=== PATIENT | male | born 1985 | race Caucasian/White ===

== ENCOUNTER 2022-02-08 04:29 | Emergency (ER) | payer MEDICAID, SELFPAY ==
[2022-02-08 04:30] VITALS: BP 149/91; PULSE 104; RESP 18; TEMP 37.3; O2SAT 97; BMI 22.2
--- NOTE | 2022-02-08 05:07 | ED_ITS ---
HPI - Skin/Abscess/Foreign Bdy General: Chief complaint: Skin/Abscess/Foreign Body Stated complaint: possible spider bite to L hand Time Seen by Provider: 02/08/22 04:46 Source: patient and family History of Present Illness: 37-year-old male with left hand pain and swelling with discoloration, redness, and warmth following what he believes is a spider bite about 4 days ago. He noticed that the area of blackness, on the dorsum of his hand, as well as spreading redness was worse this morning. He has had some sweats. No chills, no fever. No vomiting. No excruciating pain with finger movement, although this is painful. MD complaint: insect bite/sting and abscess/boil Onset (ago): day(s) Location: L hand Severity: moderate Quality: stabbing and aching Pain Consistency: constant Relieving factors: none Exacerbating factors: movement Associated symptoms: Deny arthralgias, chills, fever(s), myalgias, nausea, short of breath or vomiting Review of Systems Const: Reports: night sweats; Denies: fever(s) or chills Card: Denies: chest pain Resp: Denies: dyspnea GI: Denies: nausea or vomiting Skin/Breast: Reports: rash, erythema, skin pain, skin tenderness and skin swelling Physical Exam Const: GENERAL APPEARANCE: cooperative; not frail appearing HENMT: COMMON NORMALS: normocephalic and atraumatic HEAD & SCALP: normoce phalic and atraumatic Eye: COMMON NORMALS: Equal, round and reactive pupils present and EOMs intact bilaterally PUPIL: Yes Equal, round and reactive pupils present Neck/C-Spine: GENERAL: Yes trachea midline Chest: CHEST: Yes Symmetrical chest wall rise Resp: COMMON NORMALS: normal respiratory effort, No use of accessory muscles and clear to auscultation bilaterally AUSCULTATION: clear to auscultation bilaterally Cardio: COMMON NORMALS: regular rhythm RATE: tachycardic RHYTHM: regular rhythm GI: COMMON NORMALS: Normal to inspection, nondistended, normoactive bowel sounds present and Soft to palpation PALPATION: Yes Soft to palpation Extremity: NARRATIVE EXTREMITY EXAM: Examination of the left upper extremity reveals a 3 to 4 cm necrotic black area over the dorsum of the hand and wrist. There is no streaking redness surrounding this with soft tissue swelling to the dorsum of the hand and wrist. It creeps up to the distal third of his dorsal forearm. Tendon function is intact. There is no excruciating pain with finger extension or passive finger flexion or wrist flexion, although this is painful. Capillary refill is normal distally. Neuro: REA COMA SCALE: document GCS findings Rea coma scale eye opening: Spontaneous Rea coma scale verbal response: Orientated [place] coma scale motor response: Obey commands Rea coma scale total score: 15 Skin: NARRATIVE SKIN EXAM: See above Procedures Abscess I/D Site: hand Side (if applicable): left Local Anesthetic: lidocaine 1% Amount of anesthesia used (mL): 8 Technique: incised with #11 blade Amount of fluid expressed (mL): 8 Irrigation: Yes Packing used?: plain Course Vital Signs: Vital signs: Vital Signs Temperature 99.2 F 02/08/22 04:30 Pulse Rate 104 H 02/08/22 04:30 Respiratory Rate 15 02/08/22 05:30 Blood Pressure 149/91 02/08/22 04:30 Pulse Oximetry 97 02/08/22 04:30 Oxygen Delivery Me thod 02/08/22 04:30 MDM - Skin/Abscess/Foreign Bdy Medicial Decision Making Bedside ultrasound reveals significant fluid under the area of necrosis and surrounding area. No definite tendon involvement. There is no excruciating pain with finger movements. Necrotic abscess incised and drained without complication. A fair amount of old blood and pus were removed. Wound is packed. Tendon function remains intact. He is getting 1.25 g of vancomycin. Blood cultures are pending. White blood cell count is 16. Lab Data : 02/08/22 05:19 02/08/22 05:19 Laboratory Results WBC 16.3 10^3/uL (4.0-10.0) H 02/08/22 05:19 RBC 4.96 10^6/uL (4.1-5.3) 02/08/22 05:19 Hgb 15.1 g/dL (11.7-16.6) 02/08/22 05:19 Hct 44.9 % (42.0-52.0) 02/08/22 05:19 MCV 90.5 fl (80-94) 02/08/22 05:19 MCH 30.4 pg (28.0-34.0) 02/08/22 05:19 MCHC 33.6 g/dL (30.0-36.0) 02/08/22 05:19 RDW 11.9 % (12.1-15.1) L 02/08/22 05:19 Plt Count 174 10^3/cmm (130-400) 02/08/22 05:19 MPV 10.2 fL (7.4-10.4) 02/08/22 05:19 Neut % (Auto) 76.4 % 02/08/22 05:19 Lymph % (Auto) 10.4 % 02/08/22 05:19 Humphreys % (Auto) 11.6 % 02/08/22 05:19 Eos % (Auto) 0.6 % 02/08/22 05:19 Baso % (Auto) 0.3 % 02/08/22 05:19 Neut # (Auto) 12.47 10^3/uL (1.8-7.7) H 02/08/22 05:19 Lymph # (Auto) 1.7 10^3/uL (0.8-4.8) 02/08/22 05:19 Humphreys # (Auto) 1.9 10^3/uL (0.2-0.9) H 02/08/22 05:19 Eos # (Auto) 0.1 10^3/uL (0.0-0.8) 02/08/22 05:19 Baso # (Auto) 0.1 10^3/uL (0.0-0.1) 02/08/22 05:19 Nucleated RBC % (auto) 0 % 02/08/22 05:19 Nucleated RBCs # 0.0 /100WBC 02/08/22 05:19 ESR 7 mm/hr (0-10) 02/08/22 05:19 Sodium 140 mmol/L (136-145) 02/08/22 05:19 Potassium 4.2 mmol/L (3.5-5.1) 02/08/22 05:19 Chloride 102 mmol/L (98-107) 02/08/22 05:19 Carbon Dioxide 27 mmol/L (22-29) 02/08/22 05:19 Anion Gap 15.2 (5-19) 02/08/22 05:19 BUN 12 mg/dL (6-20) 02/08/22 05:19 Creatinine 1.0 mg/dL (0.7-1.2) 02/08/22 05:19 GFR Calculation 84.1 mL/min (90-130) L 02/08/22 05:19 Glucose 124 mg/dL (65-115) H 02/08/22 05:19 Calculated Osmolality 291 mOsm/kg (285-295) 02/08/22 05:19 Lactate 1.1 mmol/L (0.5-2.2) 02/08/22 05:19 Calcium 9.0 mg/dL (8.5-10.5) 02/08/22 05:19 Total Bilirubin 0.6 mg/dL (0.15-1.2) 02/08/22 05:19 AST 31 U/L (0-40) 02/08/22 05:19 ALT 10 U/L (0-41) 02/08/22 05:19 Alkaline Phosphatase 94 U/L (40-130) 02/08/22 05:19 C-Reactive Protein 104.4 mg/L (0.0-4.9) H 02/08/22 05:19 Total Protein 7.1 g/dL (6.6-8.7) 02/08/22 05:19 Albumin 4.4 g/dL (3.5-5.2) 02/08/22 05:19 Globulin 2.7 g/dL (1.3-4.6) 02/08/22 05:19 Discharge Plan Discharge Patient Disposition: Home Clinical Impression: Abscess of skin or subcutaneous tissue, Spider bite wound Condition: Stable Prescriptions: New clindamycin HCl 300 mg capsule 600 mg PO Q8H 10 Days Qty: 60 0RF hydrocodone-acetaminophen 5-325 mg tablet 1 tab PO Q8H PRN (Reason: pain) Qty: 10 0RF Discharge Orders: Discharge ED (Routine); Ordered 02/08/22 Ordered By: Adam Rocha Referrals: [facility], [Staff Physician] - 4-7 days Patient Instructions: Brown Recluse Spider Bite (ED), Abscess (ED) Activity Restrictions/Additional Instructions: Case management has been ordered to make you a follow-up appointment with our wound care clinic. You should get a call at the beginning of the week for this. Antibiotics as directed. Return for worsening swelling, redness, pain, despite 2-3 doses of antibiotics, fever greater than 100 despite 2-3 doses of antibiotics, vomiting liquids or medications, excruciating pain with finger movements, any other concerning symptoms. Coding Level of Care Code ED Deputy Court Clerk for Chg Fwd Exam Comprehensive
[2022-02-08 05:30] VITALS: RESP 15
[2022-02-08 05:30] LABS: Basophils # 0.1 10^3/uL (0.0-0.1); Basophils % 0.3 %; Eosinophils # 0.1 10^3/uL (0.0-0.8); Eosinophils % 0.6 %; Hematocrit 44.9 % (42.0-52.0); Hemoglobin 15.1 g/dL (11.7-16.6); Lymphocytes # 1.7 10^3/uL (0.8-4.8); Lymphocytes % 10.4 %; Mean Corpuscular HGB Conc 33.6 g/dL (30.0-36.0); Mean Corpuscular Hemoglobin 30.4 pg (28.0-34.0); Mean Corpuscular Volume 90.5 fl (80-94); Mean Platelet Volume 10.2 fL (7.4-10.4); Monocytes # 1.9 10^3/uL (0.2-0.9); Monocytes % 11.6 %; Neutrophils # 12.47 10^3/uL (1.8-7.7); Neutrophils % 76.4 %; Nucleated Red Blood Cells % 0 %; Platelet Count 174 10^3/cmm (130-400); Red Blood Count 4.96 10^6/uL (4.1-5.3); Red Cell Distribution Width 11.9 % (12.1-15.1); White Blood Count 16.3 10^3/uL (4.0-10.0)
[2022-02-08] MEDS: ondansetron 2 mg/ML SDV 2 mL 4 MG IVP (05:30)
[2022-02-08] MEDS: HYDROmorphone 1 mg/mL INJ 1 mL IVP ×2 (05:30→06:26)
[2022-02-08] MEDS: vancomycin 1,250 MG/250 ML PIGGYBACK 250 MG IV (05:34)
[2022-02-08 05:47] LABS: Erythrocyte Sedimentation Rate 7 mm/hr (0-10)
[2022-02-08 05:50] LABS: Lactate (Lactic Acid level) 1.1 mmol/L (0.5-2.2)
[2022-02-08 05:51] LABS: Alanine Aminotransferase 10 U/L (0-41); Albumin Level 4.4 g/dL (3.5-5.2); Alkaline Phosphatase 94 U/L (40-130); Anion Gap 15.2 (5-19); Aspartate Amino Transferase 31 U/L (0-40); Blood Urea Nitrogen 12 mg/dL (6-20); C Reactive Protein 104.4 mg/L (0.0-4.9); Carbon Dioxide 27 mmol/L (22-29); Chloride 102 mmol/L (98-107); Globulin 2.7 g/dL (1.3-4.6); Glomerular Filtration Rate 84.1 mL/min (90-130); Glucose 124 mg/dL (65-115); Osmolality Calculated 291 mOsm/kg (285-295); Potassium 4.2 mmol/L (3.5-5.1); Sodium 140 mmol/L (136-145); Total Bilirubin 0.6 mg/dL (0.15-1.2); Total Protein 7.1 g/dL (6.6-8.7)
[2022-02-08 06:26] VITALS: RESP 17
[2022-02-08 06:56] VITALS: BP 130/85; PULSE 102; RESP 15; O2SAT 95
[2022-02-08 20:43] LABS: Bacillus cereus group Not Detected (NOT DETECT); Bacillus subtillis group Not Detected (NOT DETECT); Corynebacterium Not Detected (NOT DETECT); Cutibacterium acnes (P.acnes) Not Detected (NOT DETECT); Enterococcus Not Detected (NOT DETECT); Enterococcus faecalis Not Detected (NOT DETECT); Enterococcus faecium Not Detected (NOT DETECT); Lactobacillus species Not Detected (NOT DETECT); Listeria Not Detected (NOT DETECT); Listeria monocytogenes Not Detected (NOT DETECT); Micrococcus Not Detected (NOT DETECT); Pan Candida Not Detected (NOT DETECT); Pan Gram-Negative Not Detected (NOT DETECT); Staphylococcus epidermidis Not Detected (NOT DETECT); Staphylococcus lugdunensis Not Detected (NOT DETECT); Staphylococcus species Detected (NOT DETECT); Streptococcus agalactiae Not Detected (NOT DETECT); Streptococcus anginosus group Not Detected (NOT DETECT); Streptococcus pneumoniae Not Detected (NOT DETECT); Streptococcus pyogenes Not Detected (NOT DETECT); Streptococcus species Not Detected (NOT DETECT); mecA Detected (NOT DETECT); mecC Not Detected (NOT DETECT)
--- NOTE | 2022-02-09 13:41 | DCPLANNER ---
Addendum entered by Jo Martínez 02/13/22 12:05: Patient had an appointment scheduled with Wound Care - patient did attend appointment Addendum entered by Jo Martínez 02/11/22 08:57: Patient has a follow up appointment scheduled for Wednesday, February 11, 2022 at 1:30 with Nicole Edmond at [facility]. Clinic will call patient with appointment information. Original Note: technical publications manager had message to schedule a follow up appointment for patient with wound care. technical publications manager sent patients information to the front office staff at [facility]. Patients information will be printed and reviewed. Clinic will call patient with appointment information.
== END 2022-02-08 06:50 | disposition home or self-care (01) ==
PROVIDERS: Emergency Provider Emergency Medicine
DX: L02.512 Cutaneous abscess of left hand (principal); T63.301A Toxic effect of unspecified spider venom, accidental (unintentional), initial encounter
CPT/HCPCS: 80053; 83605; 85025; 85651; 86140; 87040; 87150; 87186; 87205; 96365; 96375; 96376; 99284; J1170; J2405; J3370

== ENCOUNTER → 2022-02-11 13:13 | Outpatient (BNVA) | payer MEDICAID, SELFPAY | PROVIDERS: Visit Provider Nurse Practitioner Family | DX: I96 Gangrene, not elsewhere classified (principal); L98.492 Non-pressure chronic ulcer of skin of other sites with fat layer exposed | CPT/HCPCS: 11042 ==

== ENCOUNTER → 2022-02-12 16:19 | Outpatient (BNVA) | payer MEDICAID, SELFPAY | PROVIDERS: Visit Provider Surgery | DX: L02.91 Cutaneous abscess, unspecified (principal); T63.301A Toxic effect of unspecified spider venom, accidental (unintentional), initial encounter | CPT/HCPCS: 73130 ==